=== PATIENT | male | born 2000 | race Caucasian/White ===

== ENCOUNTER 2023-07-30 15:54 | Emergency (ER) | payer MEDICAID ==
[~2023-07-30] VITALS: Ht 177.8 cm; Wt 86.2 kg
[2023-07-30 16:07] VITALS: BP 129/70; PULSE 76; RESP 20; TEMP 98.9; O2SAT 97
[2023-07-30 17:01] VITALS: BP 126/68; PULSE 74; RESP 18; TEMP 98.9; O2SAT 97
[2023-07-30 17:32] LABS: APPEARANCE,URINE CLEAR (CLEAR); BILIRUBIN,URINE NEGATIVE (NEGATIVE); BLOOD, URINE NEGATIVE (NEGATIVE); COLOR,URINE YELLOW (YELLOW); LEUKOCYTE ESTERASE ,URINE NEGATIVE (NEGATIVE); NITRITE, URINE NEGATIVE (NEGATIVE); PH,URINE 7.5 (5.0-9.0); PROTEIN,URINE NEGATIVE (NEGATIVE); UGLUCOSE NEGATIVE (NEGATIVE); UROBILINOGEN,URINE 0.2 EU/dL (0.2 - 1)
== END 2023-07-30 18:35 | disposition home or self-care (01) ==
LOC: MED 15:55
DX: N50.3 Cyst of epididymis (principal)
CPT/HCPCS: 76870; 81003; 99284; Q0092